=== PATIENT | female | born 1985 | race Caucasian/White ===

== ENCOUNTER 2017-01-22 08:44 | Emergency (ER) | payer OTHER ==
[2017-01-22 08:58] VITALS: BP 101/72
--- NOTE | 2017-01-22 09:09 | UC ---
Back Pain HPI - HPI Summary HPI Summary: complaint of chronic back pain that started approx 2 years ago 05/2016 dx with compression fx in thoracic spine- Dr Viveros prescribed PT but she hasn't gone because she doesn't have the time approx 2 weeks having back pain flareup in her lower lumbar area constant aching pain in lumbar spine and is non radiating pain is worsened with any movements nothing improves the pain takes tramadol and gabapentin sometimes doesn't take any muscle relaxers but they don't work for her works as a [employer]ER [employer]ER denies any new trauma- can't recall any event that started this exacerbation last dose of tramadol 2 days ago, taking acetaminophen denies fever, dysuria, incontinence, no unintentional weight loss in the last year - History of Current Complaint Chief Complaint: UCBackPain Stated Complaint: BACK SPASMS Time Seen by Provider: 01/22/17 09:01 Hx Obtained From: Patient Hx Last Menstrual Period: 01/21/17 - Allergies/Home Medications Allergies/Adverse Reactions: Allergies Allergy/AdvReac Type Severity Reaction Status Date / Time Nickel Allergy Rash Verified 01/22/17 08:51 Home Medications: Home Medications Gabapentin CAP(*) [Neurontin 100 mg CAP(*)] 100 mg PO TID 01/22/17 [History Confirmed 01/22/17] PMH/Surg Hx/FS Hx/Imm Hx Previously Healthy: Yes Respiratory History: Asthma Psychological History: Anxiety, Depression - Surgical History Surgical History: Yes Surgery Procedure, Year, and Place: tubal ligation, lap abdomen - Social History Alcohol Use: None Substance Use Type: None Smoking Status (MU): Heavy Every Day Tobacco Smoker Type: Cigarettes Amount Used/How Often: 1/2 - 3/4 PPD Length of Time of Smoking/Using Tobacco: Since Age 16 Have You Smoked in the Last Year: Yes - Immunization History Most Recent Influenza Vaccination: Not the Season Review of Systems Constitutional: Negative Skin: Negative Eyes: Negative ENT: Negative Respiratory: Negative Cardiovascular: Negative Gastrointestinal: Negative Genitourinary: Negative Motor: Negative Neurovascular: Negative Musculoskeletal: Other: - lower bcak pain Neurological: Negative Psychological: Negative All Other Systems Reviewed And Are Negative: Yes Physical Exam Triage Information Reviewed: Yes Appearance: No Pain Distress, Well-Nourished Vital Signs: Initial Vital Signs Temp 98.2 F 01/22/17 08:50 Pulse 74 01/22/17 08:50 Resp 16 01/22/17 08:50 BP 101/72 01/22/17 08:50 Pulse Ox 100 01/22/17 08:50 Vital Signs Reviewed: Yes Eyes: Positive: Conjunctiva Clear ENT: Positive: Pharynx normal, TMs normal Neck: Positive: No Lymphadenopathy Respiratory: Positive: Lungs clear, Normal breath sounds, No respiratory distress Cardiovascular: Positive: RRR, No Murmur, Pulses Normal Abdomen Description: Positive: Nontender, Soft Bowel Sounds: Positive: Present Musculoskeletal: Positive: Other: - Spine have no noted deformities or signs of inflammation. Curvature of thoracic, and lumbar spine are within normal limits. Bony features of shoulders and hips are of equal height bilaterally. Posture is upright, and gait is smooth and normal. Spinous processes of T1-L5 palpable, midline, and non-tender; No step-offs. Back muscles - paraspinal tenderness in lumabr region R> L Flexion, extension, and rotation of the remaining spinal column is limited d/t pain Patient cannot flex forward and reach toes d/t pain Lateral bending and bending to the right and left side causes pain Neurological: Positive: Alert, Other: - patellar reflexes intact,SLR negative Psychological Exam: Normal Skin Exam: Normal Re-Evaluation - Re-Evaluation First Eval Re-Evaluation Time: 09:39 Change: Improved - less back pain Back Pain Course/Dx - Course Course Of Treatment: exam completed. no red flags to warrant imaging at this time. patient requesting time out of work and refuses muscle relaxer. discussed improtance of PT as effective treatment. will folllowup with Dr Viveros who is managing her chronic back pain - Differential Dx/Diagnosis Differential Diagnosis/HQI/PQRI: Herniated Disc, Strain, Sprain Provider Diagnoses: exacerbation of chronic back pain- lumbar region Discharge - Discharge Plan Condition: Stable Disposition: HOME Patient Education Materials: Low Back Strain (ED) Forms: *Work Release Referrals: Rebeca Viveros MD [Primary Care Provider] - Additional Instructions: Please call physical therapy for further evaluation and treatment. continue taking tramadol and gabapentin as prescribed by Dr Viveros for pain. Increase fluids and rest. Please review your discharge instructions. If your symptoms do not improve please call your primary care provider or return to urgent care.
[2017-01-22] MEDS ORDERED: Ketorolac INJ* 60 MG/2 ML VIAL IM ONE (09:16)
== END 2017-01-22 09:44 | disposition home or self-care (01) ==
LOC: UCCORT 08:44
DX: M54.5 Low back pain (principal); G89.29 Other chronic pain; F17.210 Nicotine dependence, cigarettes, uncomplicated
CPT/HCPCS: 96372; 99211; G0463; J1885

== ENCOUNTER 2017-06-22 08:50 | Emergency (ER) | payer OTHER ==
[2017-06-22 08:57] VITALS: BP 124/78
--- NOTE | 2017-06-22 09:04 | UC ---
Respiratory Complaint HPI - HPI Summary HPI Summary: 32 year old female presents with complains of chest congestion and cough. - History of Current Complaint Chief Complaint: UCRespiratory Stated Complaint: COUGH,DIFFICULTY BREATHING Time Seen by Provider: 06/22/17 09:01 Hx Obtained From: Patient Hx Last Menstrual Period: 06/13/17 Onset/Duration: Lasting Days Severity Initially: Moderate Severity Currently: Moderate - Allergies/Home Medications Allergies/Adverse Reactions: Allergies Allergy/AdvReac Type Severity Reaction Status Date / Time Nickel Allergy Rash Verified 06/22/17 08:57 Home Medications: Home Medications Levalbuterol HFA INHALER* [Xopenex Hfa Inhaler*] 2 puff INH QID PRN 06/22/17 [ History Confirmed 06/22/17] PMH/Surg Hx/FS Hx/Imm Hx Previously Healthy: Yes - Surgical History Surgical History: Yes Surgery Procedure, Year, and Place: tubal ligation, lap abdomen - Social History Alcohol Use: None Substance Use Type: None Smoking Status (MU): Heavy Every Day Tobacco Smoker Type: Cigarettes Amount Used/How Often: 1/2 - 1 PPD Length of Time of Smoking/Using Tobacco: Since Age 16 Have You Smoked in the Last Year: Yes - Immunization History Most Recent Influenza Vaccination: yes 2016 Review of Systems Constitutional: Negative Skin: Negative Eyes: Negative ENT: Nasal Discharge, Sinus Congestion, Sinus Pain/Tenderness Respiratory: Cough Cardiovascular: Negative Gastrointestinal: Negative Genitourinary: Negative Motor: Negative Neurovascular: Negative Musculoskeletal: Negative Neurological: Negative Psychological: Negative All Other Systems Reviewed And Are Negative: Yes Physical Exam Triage Information Reviewed: Yes Vital Signs: Initial Vital Signs Temp 36.9 C 06/22/17 08:52 Pulse 98 06/22/17 08:52 Resp 18 06/22/17 08:52 BP 124/78 06/22/17 08:52 Pulse Ox 100 06/22/17 08:52 Vital Signs Reviewed: Yes Eye Exam: Normal ENT Exam: Normal Dental Exam: Normal Neck exam: Normal Neck: Positive: 1 Respiratory: Positive: Rhonchi, Wheezing Cardiovascular Exam: Normal Abdominal Exam: Normal Musculoskeletal Exam: Normal Neurological Exam: Normal Psychological Exam: Normal Skin Exam: Normal UC Diagnostic Evaluation - Laboratory O2 Sat by Pulse Oximetry: 100 Respiratory Course/Dx - Differential Dx/Diagnosis Provider Diagnoses: chest congestion. cough Discharge - Discharge Plan Condition: Stable Disposition: HOME Prescriptions: Albuterol HFA INHALER* [Ventolin HFA Inhaler*] 1 puff INH Q6H PRN #1 mdi PRN Reason: Wheezing Amoxicillin PO (*) [Amoxicillin 500 MG CAP*] 500 mg PO TID #21 cap LoraTADine TAB(NF) [Claritin 10 MG TAB(NF)] 10 mg PO DAILY #30 tab Patient Education Materials: Sinusitis (ED) Forms: *Work Release Referrals: Rebeca Viveros MD [Primary Care Provider] -
== END 2017-06-22 09:09 | disposition home or self-care (01) ==
LOC: UCCORT 08:50
DX: O26.899 Other specified pregnancy related conditions, unspecified trimester (principal); O99.330 Smoking (tobacco) complicating pregnancy, unspecified trimester; F17.210 Nicotine dependence, cigarettes, uncomplicated; R05 Cough; R09.89 Other specified symptoms and signs involving the circulatory and respiratory systems
CPT/HCPCS: 99212; G0463

== ENCOUNTER → 2017-09-17 08:06 | Emergency (ER) | payer OTHER ==
--- NOTE | 2017-09-17 09:41 | ED ---
Respiratory - HPI Summary HPI Summary: 32 yr old female with the complaint of cough symptoms for over a week. She states she was exposed to influenza and was put on Tamiflu a week ago. She states she has a persistent cough that is annoying. She states her ribs hurt from coughing so much. Denies fever. no other complaints. - History of Current Complaint Stated Complaint: FLU LIKE SYMPTOMS Time Seen by Provider: 09/17/17 09:26 - Allergy/Home Medications Allergies/Adverse Reactions: Allergies Allergy/AdvReac Type Severity Reaction Status Date / Time nickel Allergy Rash Verified 09/17/17 09:40 PMH/Surg Hx/FS Hx/Imm Hx Respiratory History: Reports: Hx Asthma - Surgical History Surgery Procedure, Year, and Place: tubal ligation, lap abdomen Infectious Disease History: Denies: Traveled Outside the [place] in Last 30 Days - Social History Alcohol Use: None Substance Use Type: Reports: None Smoking Status (MU): Heavy Every Day Tobacco Smoker Type: Cigarettes Amount Used/How Often: 1/2 - 1 PPD Length of Time of Smoking/Using Tobacco: Since Age 16 Have You Smoked in the Last Year: Yes Review of Systems Negative: Fever, Chills Positive: Cough Positive: Myalgia All Other Systems Reviewed And Are Negative: Yes Physical Exam Triage Information Reviewed: Yes Vital Signs Reviewed: Yes Appearance: Positive: Well-Appearing, No Pain Distress Skin: Positive: Warm, Skin Color Reflects Adequate Perfusion Head/Face: Positive: Normal Head/Face Inspection Eyes: Positive: EOMI ENT: Positive: Pharynx normal, TMs normal Respiratory/Lung Sounds: Positive: Clear to Auscultation, Breath Sounds Present Cardiovascular: Positive: RRR. Negative: Murmur Abdomen Description: Positive: Nontender Musculoskeletal: Positive: Strength/ROM Intact Neurological: Positive: Sensory/Motor Intact, Alert, Oriented to Person Place, Time, CN Intact II-III Psychiatric: Positive: Normal AVPU Assessment: Alert - D[place]ton Coma Scale Best Eye Response: 4 - Spontaneous Best Motor Response: 6 - Obeys Commands Best Verbal Response: 5 - Oriented Coma Scale Total: 15 Disposition - Course Course Of Treatment: 32 yr old with cough and cold symptoms and some discomfort in ribs with coughing. Lungs are clear, no sob and she has normal vital signs. Plan to dc home in good condition. Note for work given. - Diagnoses Provider Diagnoses: Upper respiratory infection Discharge - Discharge Plan Condition: Good Disposition: HOME Patient Education Materials: Upper Respiratory Infection (ED) Referrals: Rebeca Viveros MD [Primary Care Provider] -
[2017-09-17 09:43] VITALS: BP 114/65
== END | disposition home or self-care (01) ==
LOC: UCCORT 08:06
DX: J06.9 Acute upper respiratory infection, unspecified (principal); Z20.828 Contact with and (suspected) exposure to other viral communicable diseases; F17.210 Nicotine dependence, cigarettes, uncomplicated
CPT/HCPCS: 99211; G0463

== ENCOUNTER 2018-05-07 09:36 | Emergency (ER) | payer OTHER ==
[2018-05-07 10:06] VITALS: BP 113/71
--- NOTE | 2018-05-07 10:16 | UC ---
Upper Extremity HPI - HPI Summary HPI Summary: 32 y/o female presents to the urgent care c/o left elbow and wrist pain w/ numbness and tingling sensation over the hand for the past week. Pt report she went to the [place] [facility] last 05/02/2018 due to left shoulder pain radiating to the left arm and was Rx Naproxen w/o any images done. Pt states Naproxen is not improving her symptoms. Pain is sharp 9/10 today w/ certain movements in the elbow radiating to the hand. Numbness and tingling over fingers 1,2 and 3. She works in [employer] and has to work in the computer a lot. She has hit her elbow in the past, but no major injury. She has a Hx of a cervical herniated disc in the past, but she can't recall at what level. Pt denies fever , neck pain, ESTRADA, dizziness, chest pain, abdominal pain, N/V/D. - History of Current Complaint Chief Complaint: UCUpperExtremity Stated Complaint: LEFT WRIST/ARM PAIN Time Seen by Provider: 05/07/18 10:15 Hx Obtained From: Patient Hx Last Menstrual Period: 04/19/18 ?: No Onset/Duration: Gradual Onset, Lasting Weeks, Still Present, Worse Since - 3 days Severity Initially: Moderate - in the left elbow Severity Currently: Severe Pain Intensity: 9 Pain Scale Used: 0-10 Numeric Location Of Pain: Is Discrete @ - left elow, Radiates To - left wrist Character: Sharp Aggravating Factor(s): Movement, Lifting Alleviating Factor(s): Ice, OTC Meds, Rest Associated Signs And Symptoms: Positive: Numbness/Tingling - left finger 1,2 and 3 Related History: Dominant Hand Right - Risk Factors Non-Orthopedic Risk Factor: Negative DVT Risk Factors: Negative Septic Arthritis Risk Factor: Negative - Allergies/Home Medications Allergies/Adverse Reactions: Allergies Allergy/AdvReac Type Severity Reaction Status Date / Time nickel Allergy Rash Verified 05/07/18 10:02 Home Medications: Home Medications Clindamycin Cap(NF) [Clindamycin Cap 300 mg Cap(NF)] 300 mg PO TID 05/07/18 [ History Confirmed 05/07/18] Naproxen [Naproxen 500 mg tab] 500 mg PO BID 05/07/18 [History Confirmed ] PMH/Surg Hx/FS Hx/Imm Hx Previously Healthy: Yes Respiratory History: Asthma Psychological History: Anxiety, Depression - Surgical History Surgical History: Yes Surgery Procedure, Year, and Place: tubal ligation, lap abdomen, left thumb - Family History Known Family History: Positive: Respiratory Disease - asthma - Social History Occupation: Employed Full-time Lives: With Family Alcohol Use: None Substance Use Type: None Smoking Status (MU): Heavy Every Day Tobacco Smoker Type: Cigarettes Amount Used/How Often: 1/2 - 1 PPD Length of Time of Smoking/Using Tobacco: Since Age 16 Have You Smoked in the Last Year: Yes - Immunization History Most Recent Influenza Vaccination: yes 2016 Review of Systems Constitutional: Negative Skin: Negative Eyes: Negative ENT: Negative Respiratory: Negative Cardiovascular: Negative Gastrointestinal: Negative Genitourinary: Negative Motor: Negative Musculoskeletal: Decreased ROM - left elbow and left wrist, Other: - left elbow and wrist pain Neurological: Paresthesia - left finger 1,2 and 3 Psychological: Negative Is Patient Immunocompromised?: No All Other Systems Reviewed And Are Negative: Yes Physical Exam - Summary Physical Exam Summary: Vital signs Reviewed: Yes Appearance: Well-Appearing, No Pain Distress, Well-Nourished female sitting in the examining table w/o any apparent distress Vital Signs Reviewed: Yes General: well developed, well nourished female sitting in the examining table w/ o any apparent distress. Eyes: Positive: Conjunctiva Clear - PERRLA, EOMI, ENT: Positive: Normal ENT inspection, Hearing grossly normal, Pharynx normal, TMs normal - B/L, Uvula midline Neck: Positive: Supple, Nontender, No Lymphadenopathy Respiratory: Positive: Chest non-tender, Lungs clear, Normal breath sounds, No respiratory distress, No accessory muscle use Cardiovascular: Positive: RRR, No Murmur, Pulses Normal, Brisk Capillary Refill Abdomen Description: Positive: Nontender, No Organomegaly, Soft. Negative: CVA Tenderness (R), CVA Tenderness (L) Bowel Sounds: Positive: Present Musculoskeletal: Positive: Strength Intact, Elbow: The L elbow is with no deformity when compared to the R elbow. No obvious surface trauma, ecchymosis, mild soft tissue swelling on the medial aspect of elbow. Point tenderness to palpation of the lateral or medial epicondyle, no tenderness over the olecranon ,and radial head. No epicondylar or axillary lymphadenopathy. Decreased ROM due to pain. Muscle strength. Intact motor and sensation of ulnar, median, and radial nerves. left wrist :No surface trauma, open wounds, swelling, or obvious deformity. Decrease ROM of left wrist due to pain. No overlying erythema or warmth. No bony crepitus or focal area of tenderness to palpation. No scaphoid fullness or tenderness to direct palpation or axial load. Normal flex/ext, ulnar /radial deviation. Motor/sensory function of ulnar, radial, median nerves intact. Ulnar and radial pulses intact. Positive Phalens/Tinels sign. Positive Lionel test Neurological: Positive: Alert, Muscle Tone Normal Psychological Exam: Normal Skin Exam: Normal Triage Information Reviewed: Yes Vital Signs: Initial Vital Signs Temp 98.2 F 05/07/18 09:59 Pulse 89 05/07/18 09:59 Resp 15 05/07/18 09:59 BP 113/71 05/07/18 09:59 Pulse Ox 100 05/07/18 09:59 Upper Extremity Course/Dx - Course Course Of Treatment: 32 y/o female presents to the urgent care c/o left elbow and wrist pain w/ numbness and tingling sensation over the hand for the past week. Pt report she went to the [place] ER last 05/02/2018 due to left shoulder pain radiating to the left arm and was Rx Naproxen w/o any images done. Pt states Naproxen is not improving her symptoms. Pain is sharp 9/10 today w/ certain movements in the elbow radiating to the hand. Numbness and tingling over fingers 1,2 and 3. She works in [employer] and has to work in the computer a lot. She has hit her elbow in the past, but no major injury. She has a Hx of a cervical herniated disc in the past, but she can't recall at what level. Pt denies fever, neck pain, ESTRADA, dizziness, chest pain, abdominal pain, N/ V/D. Hx obtained. LF wrist and left elbow X-ray ordered. Impression: Negative for fracture or dislocation. Pt Probably w/ both left Carpal tunnel syndrome and De Quervains tenosynovitis. Pts wrist immobilized with cock-up splint by the nurse and the elbow w/ an PAL bandage. Advised RICE: Rest, Ice, elevation, continue taking Narpoxen PO. There was no neurovascular compromise after splint application placed by nurse; the splint was in good alignment and the pt had good sensation and capillary refill at the time of discharge.Pt advised to f/u w / Orthopedic from Sports Medicine if not improvement of symptoms in 1 week. Pt also givne a PT referral for further managment. D/C instructions explained. Pt understood and agreed w/ plan of care. - Differential Dx/Diagnosis Differential Diagnosis/HQI/PQRI: Arthritis, Bursitis, Contusion, Fracture ( Closed), Strain, Sprain, Other Provider Diagnoses: 1- Left elbow and wrist pain. 2- left wrist De Quervain's tenosynovitis and Carpal tunel syndrome. 3- Left elbow tendonitis Discharge - Sign-Out/Discharge Documenting (check all that apply): Patient Departure - D/c home All imaging exams completed and their final reports reviewed: Yes - Discharge Plan Condition: Stable Disposition: HOME Patient Education Materials: Tenosynovitis (ED), Tendinitis (ED) Forms: *Work Release Referrals: [facility] [Provider Group] - 1 Week Paige Navarro MD [Primary Care Provider] - 1 Week Additional Instructions: 1-Please continue taking Naproxen as directed to alleviate pain and swelling. 2-Please apply ice, keep your wrist and elbow immobilized with the splint and pal bandage. Avoid heavy lifting or strenuous exercise 3- Please f/u with Orthopedic from sports medicine or your PCP in 1 week is not improvement of symptoms for further evaluation and treatment. - Billing Disposition and Condition Condition: STABLE Disposition: Home
--- NOTE | 2018-05-07 11:01 | RAD ---
HISTORY: left elbow pain COMPARISONS: None VIEWS: 4 , Frontal, lateral, and oblique views of the left elbow FINDINGS: BONE DENSITY: Normal. BONES: There is no displaced fracture. JOINTS: There is no arthropathy. There is no posterior supracondylar fat pad to suggest a joint effusion. ALIGNMENT: There is no dislocation. SOFT TISSUES: Unremarkable. OTHER FINDINGS: None. IMPRESSION: NO ACUTE OSSEOUS INJURY. IF SYMPTOMS PERSIST, RECOMMEND REPEAT IMAGING.
--- NOTE | 2018-05-07 11:02 | RAD ---
HISTORY: left wrist pain COMPARISONS: None VIEWS: 3 , Frontal, lateral, and oblique views of the left wrist FINDINGS: BONE DENSITY: Normal. BONES: There is no displaced fracture. JOINTS: There is no arthropathy. ALIGNMENT: There is no dislocation. SOFT TISSUES: Unremarkable. OTHER FINDINGS: None. IMPRESSION: NO ACUTE OSSEOUS INJURY. IF SYMPTOMS PERSIST, RECOMMEND REPEAT IMAGING.
== END 2018-05-07 11:33 | disposition home or self-care (01) ==
LOC: UCCORT 09:36
DX: M65.4 Radial styloid tenosynovitis [de Quervain] (principal); G56.02 Carpal tunnel syndrome, left upper limb; M77.9 Enthesopathy, unspecified; F17.210 Nicotine dependence, cigarettes, uncomplicated
CPT/HCPCS: 99212; G0463

== ENCOUNTER → 2018-10-28 05:29 | Day surgery (SDC) | payer OTHER ==
[~2018-10-28 05:29] MED LIST: Buffered Lidocaine 1% SYRIN* 1 ML/SYRINGE INTRADERM ONE; Bupivacaine 0.25% SDV PF* 10 ML VIAL INJ ONE; Dexamethasone IV* 4 MG/ML 1 ML (4 MG) IV SLOW PU ONE; Dexamethasone IV* 4 MG/ML 1 ML (4 MG) ONE; DiMENhydriNATE IV* 50 MG/ML VIAL IV PUSH PRN; EPHEDrine (Pressors)* 50 MG/ML VIAL ONE; Famotidine IV* 10 MG/ML 2 ML (20 mg) IV ONE; Famotidine IV* 10 MG/ML 2 ML (20 mg) ONE; HYDROcodone/ACETAMIN 5-325 MG* 1 TAB PO PRN; Ketorolac INJ* 30 MG/ML 1 ML VIAL IV PRN; Lactated Ringers 1000 ML Bag* 1,000 ML IV SCH; Lidocaine 2% PF * 5 ML VIAL ONE; Midazolam* 1 MG/ML 5 ML VIAL (5 MG) ONE; Naloxone* 0.4 MG/ML 1 ML VIAL IV PRN; Ondansetron INJ* 2 MG/ML VIAL ONE; Phenylephrine 40 MCG/ML SYRINGE ONE; Propofol* 10 MG/ML 20 ML BTL ONE; ceFAZolin 2 GM in NS PREMIX(*) 2 GM/100 ML BAG IVPB ONE; fentaNYL* 50 MCG/ML 2 ML VIAL (100 MCG VIAL) IV PRN; fentaNYL* 50 MCG/ML 2 ML VIAL (100 MCG VIAL) ONE; oxyCODONE/Acetamin 5/325 MG* TAB PO PRN
[2018-10-28 09:32] VITALS: BP 122/76
--- NOTE | 2018-10-28 10:40 | OP ---
DATE OF OPERATION: 10/28/18 - [facility] DATE OF : 85 SURGEON: Milton Antunez MD. NEUROPHYSIOLOGIST: BHARGAV Anna. An assistant professor of anthropology was needed for the procedure to aid in positioning of the arm and retraction. ANESTHESIOLOGIST: Dr. Xavier. ANESTHESIA: General. PRE-OP DIAGNOSES: 1. Left carpal tunnel syndrome. 2. Left cubital tunnel syndrome. POST-OP DIAGNOSES: 1. Left carpal tunnel syndrome. 2. Left cubital tunnel syndrome. OPERATIVE PROCEDURE: 1. Left endoscopic carpal tunnel release. 2. Left in situ cubital tunnel release with excision of anconeus epitrochlearis muscle. INDICATIONS: Rajani has the aforementioned peripheral nerve compressions. We had talked about risks and benefits. She had wanted to proceed. ESTIMATED BLOOD LOSS: 2 mL. COMPLICATIONS: None. FINDINGS: See above and below. DESCRIPTION OF PROCEDURE: Rajani was seen in the preoperative holding area. The correct site, side, and procedure were identified. We came back to the operating room and the arm was prepped and draped in the usual fashion and time- out was performed. The arm was exsanguinated with the Esmarch and the tourniquet was inflated to 250 mmHg. I first made a 1-cm transverse incision just off the ulnar aspect of the palmaris longus tendon. Dissection was carried down bluntly with the tenotomy scissors and a transverse split was made in the distal antebrachial fascia. This was snipped back with the tenotomy scissors on either side to make a distally based U flap. A 2-pronged skin hook was placed. I then used the synovial stripper followed by the dilators and then the MicroAir endoscopic carpal tunnel release system was introduced. Under direct visualization, the release was completed from distal to proximal. I first released the distal 50% and then 75% and made sure that was all released and then I released the last 25 % proximally. I placed a Jarrett retractor and confirmed the decompression. I then released the distal antebrachial fascia proximally. We then irrigated out the wound and the skin was closed with a 4-0 Prolene suture and Steri-Strip. We then abducted and externally rotated the arm and a curvilinear incision was made over the cubital tunnel. Dissection was carried down. The medial antebrachial cutaneous nerve was identified and protected. I released the fascia overlying the nerve proximally up to the arcade of [place]. I then released Espinoza ligament, and together with this, I excised anconeus epitrochlearis muscle in its entirety. I then released the superficial FCU fascia followed by splitting the two ends of the FCU and then I released the subfascial layer of the FCU. Once I had confirmed that there was absolutely no compression on the nerve and that it was fully released, I checked to make sure the nerve was stable. Everything was looking good. So, hemostasis was obtained with a Bovie and then reapproximated subcutaneous tissue with 3-0 Vicryl suture and the skin was closed with with 3-0 Monocryl suture and Steri-Strips. The 0.25% Marcaine was infiltrated all around both wounds. The wounds were dressed with soft dressings, and she was taken to the recovery room in stable condition. [id number]/CPS #: [id number] SEBAS
== END | disposition home or self-care (01) ==
LOC: OR 05:29
PROVIDERS: ATTEND Orthopaedic Surgery Hand Surgery
DX: G56.02 Carpal tunnel syndrome, left upper limb (principal); G56.22 Lesion of ulnar nerve, left upper limb; J45.909 Unspecified asthma, uncomplicated; F41.8 Other specified anxiety disorders; Z72.0 Tobacco use
CPT/HCPCS: J0690; J1100; J2250; J2405; J2704; J3010; J3490